=== PATIENT | male | born 1945 | race Caucasian/White ===

== ENCOUNTER 2018-03-17 09:49 | Emergency (ER) | payer OTHER, MEDICARE ==
[~2018-03-17] VITALS: Ht 162.6 cm; Wt 55.6 kg
[~2018-03-17 09:49] MED LIST: BAY PO; FLAGYL500 MG PO; LOP50 PO; METFORMIN HCL500 MG PO; QUEP PO; THI100 PO; VITAMIN D32000 I2 PO; ZOC20 PO
[2018-03-17 11:03] VITALS: BP 129/74
== END 2018-03-17 11:03 | disposition home or self-care (01) ==
LOC: ED 09:49
DX: I95.9 Hypotension, unspecified (principal); I10 Essential (primary) hypertension